=== PATIENT | female | born 1960 | race Caucasian/White ===

== ENCOUNTER 2023-02-10 09:37 | Outpatient (CLI) | payer BC | END 2023-02-10 09:38 | disposition home or self-care (01) | LOC: CSHCT 09:37 | PROVIDERS: ATTEND Internal Medicine | DX: Z12.2 Encounter for screening for malignant neoplasm of respiratory organs (principal); F17.210 Nicotine dependence, cigarettes, uncomplicated | CPT/HCPCS: 71271 ==

== ENCOUNTER 2023-03-28 13:10 | Outpatient (CLI) | payer BC | END 2023-03-28 13:11 | disposition home or self-care (01) | LOC: CSHULT 13:10 | PROVIDERS: ATTEND Internal Medicine | DX: R31.9 Hematuria, unspecified (principal) | CPT/HCPCS: 76770 ==

== ENCOUNTER 2025-02-19 14:43 | Outpatient (CLI) | payer BC | END 2025-02-19 14:44 | disposition home or self-care (01) | LOC: CSHMRI 14:43 | PROVIDERS: ATTEND Family Medicine Sports Medicine | DX: M75.101 Unspecified rotator cuff tear or rupture of right shoulder, not specified as traumatic (principal) ==